=== PATIENT | female | born 1985 | race Two or more races ===

== ENCOUNTER 2022-10-28 08:31 | Emergency (ER) | payer MEDICAID ==
[~2022-10-28] VITALS: Ht 162.6 cm; Wt 75.9 kg
[~2022-10-28 08:31] MED LIST: TYLENOL
[2022-10-28] MEDS ORDERED: DexAMETHasone 4 MG TAB PO ONE (09:00)
[2022-10-28] MEDS ORDERED: ALBUTEROL SULF 2.5 MG/0.5ML(0.5%) NEB SOLN NEB ONE (09:00)
[2022-10-28] MEDS ORDERED: IPRATROPIUM BROM 0.5 MG/2.5ML INH SOL NEB ONE (09:00)
[2022-10-28] MEDS ORDERED: ALBUTEROL MEDNEB 2.5 mg/3ml NEB ONE (09:34)
[2022-10-28] MEDS ORDERED: ALBU108A5 IN (13:06)
[2022-10-28 13:22] VITALS: BP 110/77
== END 2022-10-28 13:25 | disposition home or self-care (01) ==
LOC: ER 08:31
DX: J45.21 Mild intermittent asthma with (acute) exacerbation (principal); J45.909 Unspecified asthma, uncomplicated; F10.90 Alcohol use, unspecified, uncomplicated
CPT/HCPCS: 71045; 94640; 99283; J7644; J8540